=== PATIENT | male | born 1975 | race Caucasian/White ===

== ENCOUNTER 2017-06-02 23:05 | Emergency (ER) | payer MEDICAID ==
[2017-06-02 23:11] VITALS: TEMP 97.5
--- NOTE | 2017-06-02 23:28 | EDPHY ---
H & P Stated Complaint: L HAND LAC HPI/ROS: HPI CHIEF COMPLAINT: Left hand laceration. HISTORY OF PRESENT ILLNESS: This patient 42-year-old male otherwise healthy, no medical history his tetanus shot is not up-to-date, he presents emergency room with a laceration to the dorsum of the left hand over the index finger at the base of the index finger. He states he was cutting wood with a machete. The machete over extended and hit him in the left hand dorsal aspect. No other injuries. Past Medical History: No medical history Past Surgical History: No surgical history Social History: Denies daily use drugs alcohol tobacco products. Family History: Noncontributory. ROS REVIEW OF SYSTEMS: A comprehensive 10 point review of systems is otherwise negative aside from elements mentioned in the history of present illness. Exam Constitutional triage nursing summary reviewed, vital signs reviewed, awake/ alert. Eyes normal conjunctivae and sclera, EOMI, PERRLA. HENT normal inspection, atraumatic, moist mucus membranes, no epistaxis, neck supple/ no meningismus, no raccoon eyes. Respiratory clear to auscultation bilaterally, normal breath sounds, no respiratory distress, no wheezing. Cardiovascular rate normal, regular rhythm, no murmur, no edema, distal pulses normal. Gastrointestinal soft, non-tender, no rebound, no guarding, normal bowel sounds, no distension, no pulsatile mass. Genitourinary no CVA tenderness. Musculoskeletal no midline vertebral tenderness, full range of motion, no calf swelling, no tenderness of extremities, no meningismus, good pulses, neurovascularly intact. Skin left hand: Neurovascularly intact full range of motion. 3 cm horizontal laceration dorsal aspect base of the left index finger. No tendon involvement. No bony involvement. Full range of motion of the index finger. Specifically neurovascular intact. No sensation loss. No arterial injury. Normal flexion normal extension. Good cap refill. No gross contamination or foreign bodies visualized. Neurologic awake, alert and oriented x 3, AAOx3, moves all 4 extremities equally, motor intact, sensory intact, CN II-XII intact, normal cerebellar, normal vision, normal speech. Psychiatric normal mood/affect. Heme/Lymph/Immune no lymphadenopathy. Differential Diagnosis: Includes but is not limited to in a particular order, hand contusion, index finger fracture, tendon injury, arterial injury Medical Decision Making: Plan for this patient x-ray left index finger. And then washout wound copiously. Update tetanus. And repair his laceration. Re-evaluation: Laceration Repair Procedure: Verbal Consent was obtained, Under sterile conditions, The patient had lidocaine with epinephrine used approximately 3ccs to local anesthetize the LEFT INDEX FINGER DORSAL ASPECT 3CM horizontal Laceration. The wound was copiously irrigated with sterile fluid, the wound was explored for foreign bodies there were none visualized, the wound was explored with a sterile glove to the base. There are no deep structures involved, including no arterial injury. FOUR 5.O PROLENE interrupted Sutures were placed in this patient's laceration. He had good close approximation of the wound edges. He Tolerated this well. X-ray view left hand. No foreign body. No fracture. This patient understands stay in his finger splint for comfort and laceration protection. Keep an eye on it for infection. X-ray has been reviewed. His fingers neurovascular intact. Sutures in place. He tolerated this well. Sutures out in 10-12 days he understands Source: Patient - Personal History Current Tetanus Diphtheria and Acellular Pertussis (TDAP): Unsure - Medical/Surgical History Other PMH: PVCs - Social History Smoking Status: Never smoked Constitutional: Initial Vital Signs Temperature (C) 36.4 C 06/02/17 23:10 Heart Rate 69 06/02/17 23:10 Respiratory Rate 18 06/02/17 23:10 Blood Pressure 113/75 06/02/17 23:10 O2 Sat (%) 95 06/02/17 23:10 O2 Delivery Mode Room Air Allergies/Adverse Reactions: No Known Allergies Allergy (Unverified 06/02/17 23:09) Home Medications: Medication Instructions Recorded Flecainide Acetate 06/02/17 Verapamil 06/02/17 Medical Decision Making - Data Points Medications Given: Discontinued Medications Diphtheria/Tetanus/Acell Pertussis (Boostrix) 0.5 ml IM .ONCE ONE Stop: 06/02/17 23:37 Last Admin: 06/02/17 23:46 Dose: 0.5 ml Departure - Departure Disposition: Home, Routine, Self-Care Clinical Impression: Laceration Condition: Good Instructions: Laceration (ED), Care For Your Stitches (ED) Additional Instructions: 1. Keep your hand protected clean and dry. 2. Warm soapy water is fine over the wound starting in 24 hours. 3. Keep in your finger splint for comfort and protection. 4. Return emergency room or see her primary care doctor to have your sutures out in 10-12 days. Referrals: UNKNOWN,DOCTOR [Other] - As per Instructions
[2017-06-02] MEDS ORDERED: TDAP ADULT 0.5 ML INJ (BOOSTRIX) IM ONE (23:36)
[2017-06-03 00:45] VITALS: BP 118/73; PULSE 70; RESP 16; O2SAT 94
== END 2017-06-03 00:44 | disposition home or self-care (01) ==
DX: S61.211A Laceration without foreign body of left index finger without damage to nail, initial encounter (principal); Z23 Encounter for immunization; W26.0XXA Contact with knife, initial encounter
CPT/HCPCS: L3925